=== PATIENT | male | born 1985 | race Caucasian/White ===

== ENCOUNTER 2016-11-25 11:17 | Emergency (ER) | payer OTHER ==
[2016-11-25 13:48] LABS: BASOPHIL 0.6 % (0-2); HCT 43.6 % (42.0-52.0); HGB 15.3 g/dl (13.2-18.0); LYMPHOCYTE 17.4 % (15-48); MCH 31.5 pg (25.0-31.0); MCHC 35.1 g/dL (32.0-36.0); MCV 89.9 fL (78.0-100.0); MONOCYTE 9.9 % (0-12); MPV 9.6 fL (6.0-9.5); NEUTROPHIL 70.1 % (41-80); PLT 217 K/uL (150-400); RBC 4.85 M/uL (4.70-6.00); RDW 13.1 % (11.5-14.0); WBC 12.2 K/uL (4.0-10.5)
[2016-11-25 14:10] LABS: LACTIC ACID 1.3 mmol/L (0.5-2.2)
[2016-11-25 14:16] LABS: ALBUMIN 4.4 g/dL (3.5-5.0); BILIRUBIN - TOTAL 0.4 mg/dL (0.1-1.0); CREATININE 0.8 mg/dL (0.7-1.2); GLOBULIN (CALCULATION) 2.8 g/dL (2.2-4.2); POTASSIUM 3.7 mmol/L (3.5-5.1); TOTAL PROTEIN 7.2 g/dL (6.4-8.3); URIC ACID 5.4 mg/dL (3.4-7.0)
== END 2016-11-25 15:15 | disposition home or self-care (01) ==
LOC: FER 11:17
PROVIDERS: Nurse Practitioner
DX: L03.116 Cellulitis of left lower limb (principal)
CPT/HCPCS: 36415; 73564; 80053; 83605; 84550; 85025; 85651; 87040; 99283